=== PATIENT | male | born 1990 ===

== ENCOUNTER 2021-08-04 06:25 | Day surgery (SDC) | payer OTHER ==
[~2021-08-04 06:25] MED LIST: SUBOXONE 8 MG-1 EACH
== END 2021-08-04 16:35 | disposition home or self-care (01) ==
LOC: CIR.AMB 06:25
PROVIDERS: ATTEND Orthopaedic Surgery Hand Surgery
DX: S52.234A Nondisplaced oblique fracture of shaft of right ulna, initial encounter for closed fracture (principal); Z20.822 Contact with and (suspected) exposure to COVID-19

== ENCOUNTER 2021-08-31 16:05 | Outpatient (CLI) | payer OTHER | END 2021-08-31 16:17 | disposition home or self-care (01) | LOC: RAD 16:05 | PROVIDERS: ATTEND Orthopaedic Surgery Hand Surgery | DX: Q74.0 Other congenital malformations of upper limb(s), including shoulder girdle (principal) ==